=== PATIENT | female | born 1950 ===

== ENCOUNTER 2016-09-07 07:55 | Emergency (ER) | payer OTHER ==
[2016-09-07 08:08] VITALS: BP 114/94
--- NOTE | 2016-09-07 08:17 | UC ---
FLU HPI - HPI Summary HPI Summary: cough fever chest tightness for 2 days - History of Current Complaint Chief Complaint: UCRespiratory Stated Complaint: COUGH FEVER HEADACHE Time Seen by Provider: 09/07/16 08:14 Hx Obtained From: Patient ?: No Onset/Duration: Sudden Onset, Lasting Days - 2, Still Present Severity Currently: Moderate Severity Initially: Moderate Pain Intensity: 5 Pain Scale Used: 0-10 Numeric Associated Signs & Symptoms: Positive: Fever, Myalgia, Cough, Headache Related Hx: Possible Flu/Infectious Exposure, Recent Antipyretics Dose And Time - Allergy/Home Medications Allergies/Adverse Reactions: Allergies Allergy/AdvReac Type Severity Reaction Status Date / Time Sulfa Antibiotics Allergy Unknown Verified 09/07/16 08:08 Reaction Details Home Medications: Home Medications Hydrochlorothiazide TAB* [Hydrodiuril TAB*] 25 mg PO DAILY 09/07/16 [History Confirmed 09/07/16] Nifedipine [Adalat cc] 60 mg PO 09/07/16 [History] Ramipril CAP* [Altace CAP*] 5 mg PO DAILY 09/07/16 [History Confirmed 09/07/16] PMH/Surg Hx/FS Hx/Imm Hx Previously Healthy: No Cardiovascular History Of: Reports: Hypertension - Surgical History Surgical History: None - Family History Known Family History: Positive: None Family History: no reported cardio vascular issues in family lineage - Social History Occupation: Employed Full-time Lives: With Family Alcohol Use: Rare Substance Use Type: None Smoking Status (MU): Never Smoked Tobacco Review of Systems Constitutional: Fever, Chills, Fatigue Skin: Negative Eyes: Negative ENT: Negative Respiratory: Cough Cardiovascular: Negative Gastrointestinal: Negative Genitourinary: Negative Motor: Negative Neurovascular: Negative Musculoskeletal: Myalgia Neurological: Negative Psychological: Negative All Other Systems Reviewed And Are Negative: Yes Physical Exam Triage Information Reviewed: Yes Appearance: Well-Appearing, No Pain Distress, Well-Nourished Vital Signs: Initial Vital Signs Temp 98.6 F 09/07/16 08:04 Pulse 103 09/07/16 08:04 Resp 20 09/07/16 08:04 BP 114/94 09/07/16 08:04 Pulse Ox 97 09/07/16 08:04 Vital Signs Reviewed: Yes Eye Exam: Normal Eyes: Positive: Conjunctiva Clear ENT Exam: Normal ENT: Positive: Normal ENT inspection, Hearing grossly normal, Pharynx normal, TMs normal. Negative: Nasal congestion, Nasal drainage, Tonsillar swelling, Tonsillar exudate, Trismus, Muffled/hoarse voice Dental Exam: Normal Neck exam: Normal Neck: Positive: Supple, Nontender, No Lymphadenopathy Respiratory Exam: Normal Respiratory: Positive: Chest non-tender, Lungs clear, Normal breath sounds, No respiratory distress, No accessory muscle use Cardiovascular Exam: Normal Cardiovascular: Positive: RRR, No Murmur, Pulses Normal, Brisk Capillary Refill Musculoskeletal Exam: Normal Neurological Exam: Normal Neurological: Positive: Alert, Muscle Tone Normal Psychological Exam: Normal Skin Exam: Normal Diagnostics - Laboratory Diagnostic Studies Completed/Ordered: Influenza A/B (-) Flu Course/Dx - Course Course Of Treatment: increase fluids, rest albuterol, robitussin add Zithromax if fails in imporove or worens, follow with pcp - Differential Dx/Diagnosis Differential Diagnosis/HQI/PQRI: Bronchitis, Influenza, Pneumonia, Upper Respiratory Infection Provider Diagnoses: Bronchitis, Hypertension with Hx (currently treated) Discharge - Discharge Plan Condition: Stable Disposition: HOME Prescriptions: Albuterol HFA INHALER* [Ventolin HFA Inhaler*] 2 puff INH Q4H PRN #1 mdi PRN Reason: cough/chest tightness Azithromycin TAB* [Zithromax TAB (Z-SANAM) 250 mg #6 tabs] 2 tab PO .TODAY, THEN 1 DAILY #1 sanam Patient Education Materials: How to Use a Metered-Dose Inhaler (ED), Albuterol (By breathing), Dextromethorphan/Guaifenesin/Phenylephrine (By mouth), Acute Bronchitis (ED), Hypertension (ED) Referrals: Yolanda Byrd NP [Nurse Practitioner] -
== END 2016-09-07 09:01 | disposition home or self-care (01) ==
LOC: UCEAST 07:55
DX: J40 Bronchitis, not specified as acute or chronic (principal); I10 Essential (primary) hypertension; Z88.2 Allergy status to sulfonamides
CPT/HCPCS: 87502; 99212; G0463